=== PATIENT | male | born 1940 | race Caucasian/White ===

== ENCOUNTER 2022-08-17 13:15 | Inpatient (IN) | payer OTHER ==
[2022-08-17] VITALS (10 sets, daily range): BP systolic 85–137; BP diastolic 12–38
[~2022-08-17] VITALS: Ht 172.7 cm; Wt 60.0 kg
[2022-08-17] MEDS ORDERED: DEXTROSE 50% SYRINGE 50 ML IV ONE (13:26)
[2022-08-17] MEDS ORDERED: SODIUM CHLORIDE 0.9% 1,000 ML IV ONE ×2 (13:45→23:45)
[2022-08-17 14:17] LABS: Hematocrit 8.8 % (41.0-53.0); Mean Corpuscular Hemoglobin 28.8 pg (28.0-32.0); Red Blood Cells 0.81 10^6/uL (4.5-5.90); White Blood Cell 2.8 10^3/uL (4.4-10.8)
[2022-08-17 14:19] LABS: Mean Corpuscular Hgb Conc. 26.5 g/dL (32.0-36.0); Mean Corpuscular Volume 108.7 fL (80.0-100.0); Red Cell Distribution Width 19.3 % (11.8-14.3)
[2022-08-17] MEDS ORDERED: NOREPINEPHRINE 8 MG/250ML KIT 250 ML IV ONE (14:22)
[2022-08-17] MEDS ORDERED: ETOMIDATE (2MG/ML) 20ML VIAL IV ONE ×2 (14:23→14:30)
[2022-08-17] MEDS ORDERED: MIDAZOLAM DRIP 50 mg/50mL 50 ML IV ONE (14:24)
[2022-08-17 14:32] LABS: Calcium 6.1 mg/dL (8.5-10.1); Magnesium 1.9 mg/dL (1.6-2.6)
[2022-08-17 14:36] LABS: BUN/Creatinine Ratio 15.1; Bilirubin, Total 0.2 mg/dL (0.2-1.0); Total Protein 1.5 g/dL (6.4-8.2)
[2022-08-17 14:37] LABS: Lactic Acid w/Reflex 8.8 mmol/L (0.4-2.0)
[2022-08-17] MEDS ORDERED: LACTULOSE 20Gm/30ML SOLN PO ONE (14:45)
[2022-08-17] MEDS: NOREPINEPHRINE 8 MG/250ML KIT 250 ML IV SCH (14:48)
[2022-08-17] MEDS: MIDAZOLAM DRIP 50 mg/50mL 50 ML IV SCH ×2 (14:48→20:00)
[2022-08-17 14:55] LABS: Albumin 0.5 g/dL (3.4-5.0); Potassium 5.7 mmol/L (3.5-5.1)
[2022-08-17] MEDS ORDERED: ALBUMIN 25% 100 ML IV ONE (15:00)
[2022-08-17] MEDS ORDERED: CALCIUM GLUC 1,000mg/50ml-NS 50 ML IV ONE ×2 (15:00→19:15)
[2022-08-17 15:08] LABS: Hemoglobin 2.3 g/dL (13.5-17.5)
[2022-08-17 15:15] LABS: Basophils % (manual) 0 (0.0-2.0); Blast Cells 0; Eosinophils % (manual) 0 (0-7); Promyelocytes % 0; Reactive Lymphocytes 0
[2022-08-17] MEDS ORDERED: PANTOPRAZOLE 40 MG/10 ML VIAL INJ IV ONE ×2 (15:15→17:00)
[2022-08-17] MEDS ORDERED: LACTULOSE 10g/15ml SOLN 473ML PR ONE (15:30)
[2022-08-17] MEDS ORDERED: PIPERACILLIN-TAZOB 2.25GM 50 ML IV ONE (16:00)
[2022-08-17] MEDS ORDERED: SODIUM BICARBONATE 8.4 % INJ 50ML VIAL IV ONE ×2 (16:30→17:00)
[2022-08-17] MEDS ORDERED: OCTREOTIDE ACETATE 100 MCG in SODIUM CHL 0.9% 50 ML IV ONE (16:45)
[2022-08-17] MEDS ORDERED: SODIUM BICARBONATE 50ML VIAL 100 ML in SOD CHL 0.45% 1,000 ML IV SCH (16:45)
[2022-08-17] MEDS ORDERED: DOPamine 1600MCG/ML D5W 250 ML IV ONE (17:00)
[2022-08-17] MEDS ORDERED: INSULIN LANTUS (GLARGINE) 1 /0.01ml (100units/ml) SC ONE (17:00)
[2022-08-17] MEDS ORDERED: SODIUM BICARBONATE 50ML VIAL 50 ML in D5W 5% 1,000 ML IV ONE (17:00)
[2022-08-17] MEDS ORDERED: DEXTROSE (50%) 50ML SYRG IV PRN (17:00)
[2022-08-17] MEDS ORDERED: InsuLIN R (HUMAN) 100 UNITS in SODIUM CHL 0.9% 99 ML IV SCH (17:00)
[2022-08-17] MEDS ORDERED: SODIUM BICARBONATE 50ML VIAL 50 ML in D5W 5% 1,000 ML IV SCH (17:15)
[2022-08-17] MEDS ORDERED: SODIUM CHLORIDE 0.9% 2,000 ML IV ONE (17:15)
[2022-08-17] MEDS ORDERED: MORPHINE SULFATE INJ 2 MG/ml SYRG IV PRN (17:15)
[2022-08-17] MEDS ORDERED: NITROGLYCERIN 0.4 MG SL TAB SL PRN (17:15)
[2022-08-17 17:30] LABS: Magnesium 3.1 mg/dL (1.6-2.6)
[2022-08-17 17:39] LABS: Albumin 2.9 g/dL (3.4-5.0); BUN/Creatinine Ratio 12.6; Calcium 9.3 mg/dL (8.5-10.1)
[2022-08-17] MEDS ORDERED: SODIUM FERR GLUC 62.5MG/5ML 125 MG in SODIUM CHL 0.9% 100 ML IV ONE (17:45)
[2022-08-17 17:46] LABS: Phosphorus 11.9 mg/dL (2.5-4.90)
[2022-08-17 17:47] LABS: Bilirubin, Total 1.1 mg/dL (0.2-1.0); Total Protein 6.9 g/dL (6.4-8.2)
[2022-08-17 18:00] LABS: Band Neutrophils % (manual) 6; Lymphocytes % (manual) 28 (10.0-50.0); Metamyelocytes % 2; Monocytes % (manual) 12 (0-12); Myelocytes % 4
[2022-08-17] MEDS ORDERED: CEFEPIME 1GM/ 50ML 50 ML IV ONE (18:00)
[2022-08-17] MEDS ORDERED: VANCOMYCIN PER PHARMACY 0 MG IV SCH (18:00)
[2022-08-17 18:03] LABS: INR 3.65 (0.9-1.15)
[2022-08-17 18:14] LABS: Potassium 6.4 mmol/L (3.5-5.1)
[2022-08-17 18:16] LABS: Partial Thromboplastin Time > 139.0 sec (24.6-33.4)
[2022-08-17] MEDS ORDERED: VANCOMYCIN 750mg/250ml 250 ML IV ONE (18:30)
[2022-08-17] MEDS ORDERED: DEXTROSE (50%) 50ML SYRG IV ONE (19:15)
[2022-08-17] MEDS ORDERED: InsuLIN REG 1unit/0.01ml Soln (100units/ml) IV ONE (19:15)
[2022-08-17] MEDS ORDERED: SODIUM BICARBONATE 8.4% INJ 50ML SYRINGE IV ONE (19:15)
[2022-08-17] MEDS ORDERED: ALBUTEROL SULF 2.5 MG/0.5ML(0.5%) NEB SOLN NEB ONE (19:15)
[2022-08-17] MEDS: ACCU-CHEK COMFORT CURVE STRIP VI SCH ×4 (20:00→23:27)
[2022-08-17] MEDS ORDERED: VANCOMYCIN 1GM/250ML 250 ML IV ONE (20:00)
[2022-08-17] MEDS: FUROSEMIDE 20 MG/2 ML VIAL IV ONE ×2 (20:29→21:35)
[2022-08-17] MEDS: ALBUMIN 25% 100 ML IV SCH (22:00)
[2022-08-17] MEDS: PANTOPRAZOLE 40mg/50ML NS AE 50 ML IV SCH ×2 (22:45→23:07)
[2022-08-18] VITALS (10 sets, daily range): BP systolic 59–103; BP diastolic 21–75
[2022-08-18] MEDS: ACCU-CHEK COMFORT CURVE STRIP VI SCH ×7 (00:07→09:25)
[2022-08-18] MEDS: NOREPINEPHRINE 8 MG/250ML KIT 250 ML IV SCH (00:09)
[2022-08-18] MEDS: MIDAZOLAM DRIP 50 mg/50mL 50 ML IV SCH (03:24)
[2022-08-18] MEDS: PANTOPRAZOLE 40mg/50ML NS AE 50 ML IV SCH ×2 (03:30→07:45)
[2022-08-18 03:44] LABS: Alcohol, Urine < 3.0 mg/dL (0-10); Amphetamine Screen, Urine NEGATIVE (NEGATIVE); Barbiturate Scree,Urine NEGATIVE (NEGATIVE); Benzodiazephine Screen, Urine NEGATIVE (NEGATIVE); Cannabinoid Screen, Urine NEGATIVE (NEGATIVE); Cocaine Screen, Urine NEGATIVE (NEGATIVE); Opiate Scree,Urine NEGATIVE (NEGATIVE); Phencyclidine Screen, Urine NEGATIVE (NEGATIVE)
[2022-08-18] MEDS ORDERED: SODIUM BICARBONATE 50ML VIAL 50 ML in D5W 5% 1,000 ML IV SCH ×2 (04:00→09:30)
[2022-08-18 04:05] LABS: Creatinine, Urine 27 mg/dL (30.0-125.0); Sodium Urine 137 mmol/L (40-220)
[2022-08-18 04:06] LABS: Protein, Urine 914.2 mg/dL (0.0-11.9)
[2022-08-18 04:45] LABS: Urine Bacteria NONE SEEN /hpf (None Seen); Urine Blood 3+ /uL (Negative); Urine WBC 13490 /hpf (0 - 3); Urine WBC Clumps PRESENT /hpf (None Seen)
[2022-08-18] MEDS ORDERED: SODIUM CHLORIDE 0.9% 1,000 ML IV ONE (05:00)
[2022-08-18] MEDS: ALBUMIN 25% 100 ML IV SCH (05:57)
[2022-08-18 06:11] LABS: Albumin 2.7 g/dL (3.4-5.0); Calcium 7.1 mg/dL (8.5-10.1)
[2022-08-18 06:15] LABS: Total Protein 5.4 g/dL (6.4-8.2)
[2022-08-18 06:24] LABS: BUN/Creatinine Ratio 12.3; Potassium 6.8 mmol/L (3.5-5.1)
[2022-08-18] MEDS ORDERED: DEXTROSE (50%) 50ML SYRG IV PRN (07:00)
[2022-08-18] MEDS ORDERED: D5W/SOD CHL 0.45% 1,000 ML IV SCH (07:15)
[2022-08-18] MEDS ORDERED: INSULIN LANTUS (GLARGINE) 1 /0.01ml (100units/ml) SC SCH (10:00)
[2022-08-18] MEDS ORDERED: CEFEPIME 1GM/ 50ML 50 ML IV SCH (10:00)
[2022-08-18] MEDS ORDERED: PANTOPRAZOLE 40 MG/10 ML VIAL INJ IV SCH (10:00)
[2022-08-18] MEDS ORDERED: MORPHINE SULFATE INJ 2 MG/ml SYRG IV PRN (11:00)
[2022-08-18] MEDS ORDERED: LORazepam 2MG/ML-1ML VIAL IV PRN (11:00)
[2022-08-21 14:30] LABS: Hepatitis C Antibody Negative (Negative)
== END 2022-08-18 11:33 | DRG 871 ==
LOC: EDBD 13:15 → ER 13:15 → TELE 17:10
PROVIDERS: ADMIT Nurse Practitioner Family; ATTEND Internal Medicine
PROC: 30233R1 Transfusion of Nonautologous Platelets into Peripheral Vein, Percutaneous Approach (ICD-10-PCS; principal; 2022-08-17)
PROC: 5A1935Z Respiratory Ventilation, Less than 24 Consecutive Hours (ICD-10-PCS; 2022-08-17)
PROC: 0BH17EZ Insertion of Endotracheal Airway into Trachea, Via Natural or Artificial Opening (ICD-10-PCS; 2022-08-17)
PROC: 30233N1 Transfusion of Nonautologous Red Blood Cells into Peripheral Vein, Percutaneous Approach (ICD-10-PCS; 2022-08-18)
DX: A41.9 Sepsis, unspecified organism (principal); E43 Unspecified severe protein-calorie malnutrition; I21.4 Non-ST elevation (NSTEMI) myocardial infarction; I50.21 Acute systolic (congestive) heart failure; J96.01 Acute respiratory failure with hypoxia; K72.00 Acute and subacute hepatic failure without coma; N17.0 Acute kidney failure with tubular necrosis; R65.21 Severe sepsis with septic shock; U07.1 COVID-19; D61.818 Other pancytopenia; E87.0 Hyperosmolality and hypernatremia; K86.1 Other chronic pancreatitis; K92.2 Gastrointestinal hemorrhage, unspecified; R57.0 Cardiogenic shock; R73.9 Hyperglycemia, unspecified; Z66 Do not resuscitate; Z51.5 Encounter for palliative care; K74.60 Unspecified cirrhosis of liver; D50.0 Iron deficiency anemia secondary to blood loss (chronic); E16.2 Hypoglycemia, unspecified; E86.0 Dehydration; E83.51 Hypocalcemia; E87.5 Hyperkalemia; I48.91 Unspecified atrial fibrillation; K76.82 Hepatic encephalopathy; N18.30 Chronic kidney disease, stage 3 unspecified; Z74.01 Bed confinement status; Z90.49 Acquired absence of other specified parts of digestive tract
CPT/HCPCS: 31500; 36415; 36430; 36556; 36600; 71045; 76775; 80053; 80202; 80307; 81001; 82140; 82271; 82570; 82805; 82962; 83036; 83605; 83690; 83735; 83970; 84100; 84156; 84300; 84484; 85007; 85027; 85610; 85730; 86803; 86850; 86900; 86901; 86920; 87070; 87077; 87186; 87205; 87340; 87426; 93005; 93306; 94002; 94003; 96360; 99291; C9113; G0378; J1815; J2250; J2543; P9047